=== PATIENT | male | born 1970 | race Caucasian/White ===

== ENCOUNTER 2019-11-08 11:39 | Emergency (ER) | payer OTHER, SELFPAY ==
[2019-11-08 11:46] VITALS: BP 121/80; PULSE 67; RESP 16; TEMP 37.4; O2SAT 97
--- NOTE | 2019-11-08 12:36 | ED.URI ---
HPI - URI/Sore Throat General Chief Complaint: Upper Respiratory Infection Stated Complaint: Stomach Pain/Achy/Low Energy Time Seen by Provider: 11/08/19 12:37 Source: patient and family History of Present Illness HPI Narrative: Patient presents with generalized body aches pains nasal congestion and cough. Patient states his symptoms have been going on for the past 4 days. Patient reports normal appetite normal activity normally healthy individual. Patient presents with left ear pain. Loose congested cough but patient is a pack-a-day longtime smoker. No shortness of breath no chest pain. MD elicited complaint: sore throat, rhinorrhea and nasal congestion Related Data Allergies Allergy/AdvReac Type Severity Reaction Status Date / Time codeine Allergy Unknown Unknown Verified 11/08/19 12:49 Review of Systems Review of Systems: Narrative: CONSTITUTIONAL: Denies chills, or sweats. Reports fever and generalized body aches EYES: Denies visual changes, redness, or discharge. ENT: Denies otalgia. Reports nasal congestion runny nose and sore throat CARDIOVASCULAR: Denies chest pain, palpitations, or edema. RESPIRATORY: Denies dyspnea. Reports occasional cough GASTROINTESTINAL: Denies abdominal pain, nausea, vomiting, or diarrhea. GENITOURINARY: Denies dysuria or hematuria. SKIN: Denies rash or itching. MUSCULOSKELETAL: Denies back pain, joint pain, or myalgia. Reports generalized body aches NEUROLOGIC: Denies headache, numbness, or weakness. PSYCHIATRIC: Denies anxiety or depression. [facility] Family History Family History (Updated 03/27/16 @ 23:19 by DOCTOR UNKNOWN) Mother Cerebrovascular accident Family history of diabetes mellitus in first degree relative Father Family history of chronic obstructive pulmonary disease Family history of congestive heart failure Family history of heart disease in male family member before age 55 Other Diabetes mellitus Family history of alcoholism Family history of arthritis Family history of lung disease Family history of mental disorder Hypertension Social History Social History Smoking status: Heavy tobacco smoker Alcohol intake: current Comments At time of signature, agree with nursing past medical, surgical, social and family history. There is no relevant family history pertinent to the presenting complaint Exam Narrative: Exam Narrative: The patient is a well-developed, well-nourished in no acute distress. SKIN: Skin is warm and dry without erythema, swelling or exudate. There is good turgor. No tenting. HEAD: Atraumatic. Normocephalic. No temporal or scalp tenderness. EYES: Moist and bright. Sclera and conjunctivae normal. No discharge. PERRLA. Extraocular motions intact. Gross visual acuity intact. EARS: Pinna is normal shape and contour. Clear external auditory canals. Right TM pearly chanel with good cone of light, no erythema or suppuration. Left TM mild erythremia and dullness bilateral cerumen noted no gross hearing deficit. NOSE: pink, moist mucosa with good air movement. Clear rhinorrhea without nasal flaring. Septum midline. Mouth: moist mucous membranes. THROAT; mild erythema noted to posterior oropharynx with moderate postnasal drainage. Without exudate or ulceration.. Uvula midline. Normal movement of soft palate. NECK: Supple and nontender with full range of motion without discomfort. No meningeal signs. LUNGS: Equal and bilateral breath sounds without wheezes, rales or rhonchi. CHEST: The chest wall is without retractions or use of accessory muscles. HEART: Has a regular rate and rhythm without murmur, gallops, click or rub. ABDOMEN: Soft, nontender with positive active bowel sounds. No rebound tenderness. EXTREMITIES: Without cyanosis, clubbing or edema. Equal 2+ distal pulses and 2 second capillary refill noted. NEUROLOGIC: alert, active, . The patient moves all extremities with normal muscle strength. Normal muscle tone is noted. Normal coordination is
== END 2019-11-08 13:10 | disposition home or self-care (01) ==
PROVIDERS: Emergency Provider Nurse Practitioner Family
DX: J10.1 Influenza due to other identified influenza virus with other respiratory manifestations (principal); H66.92 Otitis media, unspecified, left ear; F17.200 Nicotine dependence, unspecified, uncomplicated
CPT/HCPCS: 87081; 87804; 87880; 99213; G0463